=== PATIENT | male | born 1955 | race Caucasian/White ===

== ENCOUNTER → 2016-09-05 | Outpatient (CLI) | payer BC, OTHER ==
[2016-09-05 11:06] LABS: MEAN CORPUSCULAR HEMOGLOBIN 30.7 pg (27.0-33.0); MEAN CORPUSCULAR HGB CONC 34.3 g/dl (32.0-36.5); MEAN CORPUSCULAR VOLUME 89.4 fl (80.0-96.0); RED CELL DISTRIBUTION WIDTH 12.8 % (11.5-14.5); WHITE BLOOD COUNT 6.4 K/mm3 (4.0-10.0)
[2016-09-05 11:34] LABS: ALBUMIN 3.5 GM/DL (3.2-5.2); ALKALINE PHOSPHATASE 77 U/L (45-117); ALT/SGPT 25 U/L (12-78); ANION GAP 9 MEQ/L (8-16); AST/SGOT 14 U/L (15-37); BILIRUBIN,TOTAL 0.6 MG/DL (0.2-1.0); BLOOD UREA NITROGEN 12 MG/DL (7-18); CALCIUM LEVEL 8.6 MG/DL (8.5-10.1); CARBON DIOXIDE LEVEL 29 MEQ/L (21-32); CHLORIDE LEVEL 104 MEQ/L (98-107); CHOLESTEROL LEVEL 193 MG/DL (<200); CREATININE FOR GFR 0.92 MG/DL (0.70-1.30); GLOMERULAR FILTRATION RATE > 60.0 (>56); GLUCOSE, FASTING 91 MG/DL (70-105); POTASSIUM SERUM 4.4 MEQ/L (3.5-5.1); SODIUM LEVEL 142 MEQ/L (136-145); TRIGLYCERIDES LEVEL 194 MG/DL (<150)
== END ==
LOC: M LAB 10:09
PROVIDERS: ATTEND Family Medicine
DX: F32.1 Major depressive disorder, single episode, moderate (principal); F10.10 Alcohol abuse, uncomplicated; G47.33 Obstructive sleep apnea (adult) (pediatric); K21.9 Gastro-esophageal reflux disease without esophagitis; E66.9 Obesity, unspecified; N52.8 Other male erectile dysfunction; I10 Essential (primary) hypertension; Z98.84 Bariatric surgery status

== ENCOUNTER 2017-08-21 10:00 | Emergency (ER) | payer OTHER ==
[2017-08-21] MEDS: KETOROLAC TROMETHAMINE 10 MG TAB PO (11:15)
== END 2017-08-21 12:56 | disposition home or self-care (01) ==
LOC: M ED 10:00
DX: S76.012A Strain of muscle, fascia and tendon of left hip, initial encounter (principal); X58.XXXA Exposure to other specified factors, initial encounter; Y92.89 Other specified places as the place of occurrence of the external cause; I10 Essential (primary) hypertension; E78.5 Hyperlipidemia, unspecified; K21.9 Gastro-esophageal reflux disease without esophagitis; Z87.442 Personal history of urinary calculi; Z98.84 Bariatric surgery status; Z79.899 Other long term (current) drug therapy; Z79.82 Long term (current) use of aspirin; Z87.891 Personal history of nicotine dependence
CPT/HCPCS: 73502

== ENCOUNTER → 2018-08-06 | Outpatient (CLI) | payer OTHER ==
[~2018-08-06] MED LIST: ASPI1TAB PO; ATOR80TA59; CYCL10TA PO; ESCI20TA; FLUO20CA19; NORCOTAB PO; OMEP40CA2; TRAZ-163 PO
== END ==
LOC: M OUTALCOH 12:35
PROVIDERS: ATTEND Psychiatry & Neurology Psychiatry
DX: F10.20 Alcohol dependence, uncomplicated (principal)

== ENCOUNTER → 2018-08-06 | Outpatient (REF) | payer OTHER ==
[2018-08-06 13:52] LABS: ALBUMIN 3.5 GM/DL (3.2-5.2); ALT/SGPT 29 U/L (12-78); AMYLASE 60 U/L (25-115); BILIRUBIN,TOTAL 0.6 MG/DL (0.2-1.0); BLOOD UREA NITROGEN 15 MG/DL (7-18); CALCIUM LEVEL 8.8 MG/DL (8.8-10.2); CARBON DIOXIDE LEVEL 30 MEQ/L (21-32); CHLORIDE LEVEL 105 MEQ/L (98-107); CREATININE FOR GFR 0.98 MG/DL (0.70-1.30); GLOMERULAR FILTRATION RATE > 60.0 (>49); GLUCOSE, FASTING 83 MG/DL (70-100); LIPASE 168 U/L (73-393); POTASSIUM SERUM 4.9 MEQ/L (3.5-5.1); SODIUM LEVEL 141 MEQ/L (136-145)
== END ==
LOC: M SFHCPLAZ 11:08
PROVIDERS: ATTEND Family Medicine
DX: F10.10 Alcohol abuse, uncomplicated (principal)

== ENCOUNTER → 2018-08-20 | Outpatient (REF) | payer OTHER ==
[2018-08-21 11:48] LABS: FOLATE 18.4 NG/ML (>5.4)
[2018-08-22 10:47] LABS: HEPATITIS C VIRUS ABY INDEX 1.1 INDEX (<0.8); HIV 1&2 SCREEN CENTAUR NEGATIVE (NEGATIVE)
[2018-08-23 11:23] LABS: VITAMIN B12 LEVEL 466 PG/ML (232-1245)
== END ==
LOC: M SFHCPLAZ 13:59
PROVIDERS: ATTEND Family Medicine
DX: Z72.51 High risk heterosexual behavior (principal); F10.10 Alcohol abuse, uncomplicated

== ENCOUNTER → 2018-09-26 | Outpatient (REF) | payer OTHER ==
[~2018-09-26] MED LIST changes: +CHLO50TA; +HYDR50TA70; +LOSA50TA88
[2018-09-26 12:03] LABS: APPEARANCE, URINE HAZY (CLEAR); BACTERIA, URINE AUTO NEGATIVE (NEGATIVE); BILIRUBIN, URINE AUTO NEGATIVE (NEGATIVE); BLOOD, URINE BLOOD NEGATIVE (NEGATIVE); COLOR, URINE AMBER (YELLOW); GLUCOSE, URINE (UA) AUTO NEGATIVE (NEGATIVE); KETONE, URINE AUTO NEGATIVE (NEGATIVE); LEUKOCYTE ESTERASE, URINE AUTO NEGATIVE (NEGATIVE); MUCUS, URINE SMALL (NEGATIVE); NITRITE, URINE AUTO NEGATIVE (NEGATIVE); PROTEIN, URINE AUTO NEGATIVE (NEGATIVE); RBC, URINE AUTO 2 /HPF (0-3); SPECIFIC GRAVITY URINE AUTO 1.019 (1.002-1.035); SQUAMOUS EPITHELIAL CELL UR AU 0 /HPF (0-6); WBC, URINE AUTO 0 /HPF (0-3)
[2018-09-26 12:37] LABS: BLOOD UREA NITROGEN 14 MG/DL (7-18); CALCIUM LEVEL 8.8 MG/DL (8.8-10.2); CARBON DIOXIDE LEVEL 32 MEQ/L (21-32); CHLORIDE LEVEL 103 MEQ/L (98-107); CREATININE FOR GFR 0.83 MG/DL (0.70-1.30); GLOMERULAR FILTRATION RATE > 60.0 (>49); GLUCOSE, FASTING 82 MG/DL (70-100); POTASSIUM SERUM 4.3 MEQ/L (3.5-5.1); SODIUM LEVEL 140 MEQ/L (136-145)
== END ==
LOC: M SFHCPLAZ 10:37
PROVIDERS: ATTEND Family Medicine
DX: I10 Essential (primary) hypertension (principal)

== ENCOUNTER 2018-10-13 00:35 | Emergency (ER) | payer OTHER ==
[~2018-10-13] VITALS: Ht 172.7 cm; Wt 109.1 kg
[~2018-10-13 00:35] MED LIST changes: -ASPI1TAB PO; +ASPI81TA26 PO; -CHLO50TA; +HYDR-3715 PO; -HYDR50TA70; -LOSA50TA88; -NORCOTAB PO
[2018-10-13] MEDS ORDERED: LOSA50TA88 (00:42)
[2018-10-13] MEDS ORDERED: HYDR50TA70 (00:42)
[2018-10-13] MEDS ORDERED: CHLO50TA (00:42)
[2018-10-13 01:27] LABS: BASO # 0.1 10^3/uL (0.0-0.2); BASO % 0.7 % (0.0-1.0); EOS # 0.4 10^3/uL (0.0-0.50); EOS % 3.9 % (0.0-3.0); HEMOGLOBIN 14.8 g/dl (13.5-17.5); LYMPH # 2.8 10^3/uL (1.5-4.5); LYMPH % 28.8 % (24.0-44.0); MEAN CORPUSCULAR HEMOGLOBIN 30.9 pg (27.0-33.0); MEAN CORPUSCULAR HGB CONC 34.4 g/dl (32.0-36.5); MEAN CORPUSCULAR VOLUME 89.8 fl (80.0-96.0); MONO # 0.8 10^3/uL (0.0-0.8); MONO % 7.9 % (0.0-5.0); NEUTROPHILS # 5.7 10^3/uL (1.8-7.7); NEUTROPHILS % 58.3 % (36.0-66.0); PLATELET COUNT, AUTOMATED 319 10^3/uL (150-450); RED BLOOD COUNT 4.79 10^6/uL (4.30-6.10); WHITE BLOOD COUNT 9.8 10^3/uL (4.0-10.0)
[2018-10-13 01:42] LABS: INR 0.92; PROTHROMBIN TIME 12.5 SECONDS (12.1-14.4)
[2018-10-13 02:02] LABS: ALBUMIN 3.7 GM/DL (3.2-5.2); ALT/SGPT 38 U/L (12-78); BILIRUBIN,DIRECT < 0.1 MG/DL (0.0-0.2); BILIRUBIN,TOTAL 0.3 MG/DL (0.2-1.0); BLOOD UREA NITROGEN 13 MG/DL (7-18); CALCIUM LEVEL 8.7 MG/DL (8.8-10.2); CARBON DIOXIDE LEVEL 29 MEQ/L (21-32); CHLORIDE LEVEL 99 MEQ/L (98-107); CREATININE FOR GFR 0.97 MG/DL (0.70-1.30); ETHYL ALCOHOL (ETHANOL) 0.087 % (0.000-0.010); GLOMERULAR FILTRATION RATE > 60.0 (>49); GLUCOSE, FASTING 95 MG/DL (70-100); LIPASE 235 U/L (73-393); POTASSIUM SERUM 3.3 MEQ/L (3.5-5.1); SODIUM LEVEL 139 MEQ/L (136-145); TOTAL PROTEIN 7.6 GM/DL (6.4-8.2)
[2018-10-13] MEDS ORDERED: BISACODYL 5 MG TAB PO ONE (02:45)
[2018-10-13] MEDS ORDERED: MIRA3350 PO (03:50)
[2018-10-13 03:56] VITALS: BP 149/97
--- NOTE | 2018-10-13 08:16 | REP ---
Clinical: Abdominal pain. Technique: Upright view of the chest with supine and upright views of the abdomen and pelvis. Findings: Frontal upright view of the chest demonstrates no acute cardiopulmonary process or free air below the diaphragm to suspect pneumoperitoneum. Supine and upright views of the abdomen and pelvis demonstrate nonspecific bowel gas pattern without obstruction or perforation. No organomegaly. No abnormal calcifications. Skeletal structures normal for age. Surgical clips along the medial aspect of the left mid abdomen. Impression: Nonspecific bowel gas pattern. Electronically Signed by Saurabh Mcelroy MD 10/13/2018 08:07 A
== END 2018-10-13 04:18 | disposition home or self-care (01) ==
LOC: M ED 00:35
DX: F10.129 Alcohol abuse with intoxication, unspecified (principal); K59.00 Constipation, unspecified; I10 Essential (primary) hypertension; E78.5 Hyperlipidemia, unspecified; K21.9 Gastro-esophageal reflux disease without esophagitis; E66.01 Morbid (severe) obesity due to excess calories; Z98.84 Bariatric surgery status; G47.30 Sleep apnea, unspecified; Z79.82 Long term (current) use of aspirin; Z79.899 Other long term (current) drug therapy
CPT/HCPCS: 74021; 80048; 80076; 83690; 85025; 85610; 93041; 99284; G0480

== ENCOUNTER → 2019-02-12 | Outpatient (REF) | payer OTHER ==
[~2019-02-12] MED LIST changes: -ATOR80TA59; +ATOR80TA59 PO; +CHLO50TA PO; -ESCI20TA; +ESCI20TA PO; -FLUO20CA19; +FLUO20CA19 PO; +HYDR50TA70; +LOSA50TA88 PO; +MIRA3350 PO; +RANI150T PO
[2019-02-12 15:10] LABS: BASO # 0.1 10^3/uL (0.0-0.2); EOS # 0.2 10^3/uL (0.0-0.50); EOS % 3.6 % (0.0-3.0); HEMATOCRIT 44.2 % (42.0-52.0); HEMOGLOBIN 14.6 g/dl (13.5-17.5); LYMPH # 1.5 10^3/uL (1.5-4.5); LYMPH % 24.1 % (24.0-44.0); MEAN CORPUSCULAR HEMOGLOBIN 30.9 pg (27.0-33.0); MEAN CORPUSCULAR VOLUME 93.4 fl (80.0-96.0); MONO # 0.5 10^3/uL (0.0-0.8); MONO % 7.6 % (0.0-5.0); NEUTROPHILS # 3.9 10^3/uL (1.8-7.7); NEUTROPHILS % 63.5 % (36.0-66.0); PLATELET COUNT, AUTOMATED 353 10^3/uL (150-450); RED BLOOD COUNT 4.73 10^6/uL (4.30-6.10); WHITE BLOOD COUNT 6.1 10^3/uL (4.0-10.0)
[2019-02-12 15:48] LABS: ERYTHROCYTE SEDIMENTATION RATE 30 mm/hr (0-20)
== END ==
LOC: M SFHCPLAZ 12:15
PROVIDERS: ATTEND Family Medicine
DX: M25.532 Pain in left wrist (principal)

== ENCOUNTER 2019-02-22 10:38 | Day surgery (SDC) | payer OTHER ==
[~2019-02-22] VITALS: Ht 172.7 cm; Wt 105.0 kg
[2019-02-22] MEDS ORDERED: NS 1,000 ML IV ONE (11:30)
--- NOTE | 2019-02-22 12:28 | ROOR ---
Patient Name: Amandeep Coto Procedure Date: 02/22/2019 12:14 PM Date of : 1955 Age: 63 Room: [facility] Gender: Male Note Status: Finalized Procedure: Upper GI endoscopy Indications: Epigastric abdominal pain, Heartburn Providers: Ramy YUNG MD Referring MD: SOM RODRIGUEZ MD Requesting Provider: Medicines: Monitored Anesthesia Care Complications: No immediate complications. Procedure: Pre-Anesthesia Assessment: - The heart rate, respiratory rate, oxygen saturations, blood pressure, adequacy of pulmonary ventilation, and response to care were monitored throughout the procedure. The Endoscope was introduced through the mouth, and advanced to the jejunum. The upper GI endoscopy was accomplished without difficulty. The patient tolerated the procedure well. Findings: The examined esophagus was normal. 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 The gastrojejunal anastomosis was characterized by healthy appearing mucosa. The exam of the stomach was otherwise normal. The examined jejunum was normal. Impression: - Normal esophagus. - Carlos-en-Y gastrojejunostomy with gastrojejunal anastomosis widely patent and characterized by healthy appearing mucosa. - Stomach is otherwise normal. - Normal examined jejunum. - No specimens collected. Recommendation: - Observe patient's clinical course. - Follow an antireflux regimen. Ramy Yung MD Ramy YUNG MD 02/22/2019 12:27:55 PM Electronically signed by Ramy YUNG MD Number of Addenda: 0 Note Initiated On: 02/22/2019 12:14 PM Estimated Blood Loss: Estimated blood loss: none.
[2019-02-22] MEDS ORDERED: PROPOFOL 200 MG/20 ML VIAL As Ordered ONE ×2 (12:29→12:33)
[2019-02-22] MEDS ORDERED: LIDOCAINE 2% INJ 100 MG/5 ML SDV (FOR ANES.) As Ordered ONE (12:29)
--- NOTE | 2019-02-22 12:47 | ROOR ---
Patient Name: Amandeep Coto Procedure Date: 02/22/2019 12:15 PM Date of : 1955 Age: 63 Room: [facility] Gender: Male Note Status: Finalized Procedure: Colonoscopy Indications: High risk colon cancer surveillance: Personal history of colonic polyps, High risk colon cancer surveillance: Personal history of sessile serrated colon polyp (10 mm or greater in size) Providers: Ramy YUNG MD Referring MD: SOM RODRIGUEZ MD Requesting Provider: Medicines: Monitored Anesthesia Care Complications: No immediate complications. Procedure: Pre-Anesthesia Assessment: - The heart rate, respiratory rate, oxygen saturations, blood pressure, adequacy of pulmonary ventilation, and response to care were monitored throughout the procedure. The Colonoscope was introduced through the anus and advanced to the cecum, identified by appendiceal orifice and ileocecal valve. The colonoscopy was performed without difficulty. The patient tolerated the procedure well. The quality of the bowel preparation was fair and unsatisfactory. Findings: The perianal and digital rectal examinations were normal. (EXAM: Complete, PREP: Suboptimal) A 5 mm polyp was found in the ascending colon. The polyp was sessile. The polyp was removed with a cold snare. Resection and retrieval were complete. The exam was otherwise without abnormality on direct and retroflexion views. Impression: - (EXAM: Complete, PREP: Suboptimal) - One 5 mm polyp in the ascending colon, removed with a cold snare. Resected and retrieved. - Internal hemorrhoids. - The examination was otherwise normal on direct and retroflexion views. Recommendation: - Repeat colonoscopy in 2 years because the bowel preparation was suboptimal. - (Rec alternate colon preparation for next colonoscopy) Ramy Yung MD Ramy YUNG MD 02/22/2019 12:47:00 PM Electronically signed by Ramy YUNG MD Number of Addenda: 0 Note Initiated On: 02/22/2019 12:15 PM Estimated Blood Loss: Estimated blood loss: none.
[2019-02-22 13:33] VITALS: BP 159/77
== END 2019-02-22 13:40 | disposition home or self-care (01) ==
LOC: M OPP 10:38
PROVIDERS: ATTEND Internal Medicine Gastroenterology
DX: Z12.11 Encounter for screening for malignant neoplasm of colon (principal); Z86.010 Personal history of colon polyps; D12.2 Benign neoplasm of ascending colon; R10.13 Epigastric pain; R12 Heartburn; Z98.0 Intestinal bypass and anastomosis status; I10 Essential (primary) hypertension; E78.5 Hyperlipidemia, unspecified; K21.9 Gastro-esophageal reflux disease without esophagitis; F41.9 Anxiety disorder, unspecified; F32.9 Major depressive disorder, single episode, unspecified; G47.30 Sleep apnea, unspecified; R06.83 Snoring; Z98.84 Bariatric surgery status; Z79.82 Long term (current) use of aspirin; Z79.899 Other long term (current) drug therapy

== ENCOUNTER → 2019-04-02 | Outpatient (REF) | payer OTHER ==
[2019-04-02 17:23] LABS: HEMATOCRIT 42.1 % (42.0-52.0); MEAN CORPUSCULAR HEMOGLOBIN 31.4 pg (27.0-33.0); MEAN CORPUSCULAR HGB CONC 33.3 g/dl (32.0-36.5); MEAN CORPUSCULAR VOLUME 94.4 fl (80.0-96.0); PLATELET COUNT, AUTOMATED 319 10^3/uL (150-450); RED BLOOD COUNT 4.46 10^6/uL (4.30-6.10); WHITE BLOOD COUNT 5.9 10^3/uL (4.0-10.0)
[2019-04-02 17:51] LABS: ALBUMIN 3.5 GM/DL (3.2-5.2); ALT/SGPT 21 U/L (12-78); BILIRUBIN,TOTAL 0.6 MG/DL (0.2-1.0); BLOOD UREA NITROGEN 19 MG/DL (7-18); CALCIUM LEVEL 9.1 MG/DL (8.8-10.2); CARBON DIOXIDE LEVEL 31 MEQ/L (21-32); CHLORIDE LEVEL 101 MEQ/L (98-107); CREATININE FOR GFR 1.07 MG/DL (0.70-1.30); GLOMERULAR FILTRATION RATE > 60.0 (>49); GLUCOSE, FASTING 86 MG/DL (70-100); LIPASE 166 U/L (73-393); SODIUM LEVEL 139 MEQ/L (136-145); TOTAL PROTEIN 6.9 GM/DL (6.4-8.2)
== END ==
LOC: M SFHCPLAZ 15:33
PROVIDERS: ATTEND Family Medicine
DX: R10.84 Generalized abdominal pain (principal)

== ENCOUNTER → 2019-06-18 | Outpatient (REF) | payer OTHER ==
[~2019-06-18] MED LIST changes: -OMEP40CA2; +OMEP40CA97
[2019-06-18 18:03] LABS: BASO # 0.1 10^3/uL (0.0-0.2); BASO % 0.8 % (0.0-1.0); EOS # 0.3 10^3/uL (0.0-0.5); EOS % 3.4 % (0.0-3.0); HEMOGLOBIN 14.2 g/dl (13.5-17.5); LYMPH # 2.1 10^3/uL (1.5-5.0); LYMPH % 29.1 % (24.0-44.0); MEAN CORPUSCULAR HEMOGLOBIN 30.6 pg (27.0-33.0); MEAN CORPUSCULAR HGB CONC 32.3 g/dl (32.0-36.5); MEAN CORPUSCULAR VOLUME 94.8 fl (80.0-96.0); MONO # 0.6 10^3/uL (0.0-0.8); MONO % 7.6 % (0.0-5.0); NEUTROPHILS # 4.3 10^3/uL (1.5-8.5); NEUTROPHILS % 58.7 % (36.0-66.0); PLATELET COUNT, AUTOMATED 375 10^3/uL (150-450); RED BLOOD COUNT 4.64 10^6/uL (4.30-6.10); WHITE BLOOD COUNT 7.3 10^3/uL (4.0-10.0)
[2019-06-18 18:24] LABS: ALBUMIN 3.7 GM/DL (3.2-5.2); ALT/SGPT 33 U/L (12-78); BILIRUBIN,TOTAL 0.4 MG/DL (0.2-1.0); BLOOD UREA NITROGEN 13 MG/DL (7-18); CALCIUM LEVEL 9.8 MG/DL (8.8-10.2); CARBON DIOXIDE LEVEL 33 MEQ/L (21-32); CHLORIDE LEVEL 100 MEQ/L (98-107); CREATININE FOR GFR 1.17 MG/DL (0.70-1.30); GLOMERULAR FILTRATION RATE > 60.0 (>49); GLUCOSE, FASTING 79 MG/DL (70-100); LIPASE 206 U/L (73-393); POTASSIUM SERUM 4.4 MEQ/L (3.5-5.1); SODIUM LEVEL 140 MEQ/L (136-145); TOTAL PROTEIN 7.4 GM/DL (6.4-8.2)
== END ==
LOC: M SFHCPLAZ 15:25
PROVIDERS: ATTEND Family Medicine
DX: R10.31 Right lower quadrant pain (principal)

== ENCOUNTER → 2019-07-22 | Outpatient (CLI) | payer OTHER ==
[~2019-07-22] MED LIST changes: +GASTROGRAFIN SOLUTION 30ML (Q9963) As Ordered ONE; +ISOVUE-370 76% 100ML VIAL (Q9967) As Ordered ONE
--- NOTE | 2019-07-22 21:24 | REP ---
Clinical: Right lower quadrant pain. Technique: Axial contrast enhanced images from the lung bases to the pubic symphysis using 100 ml Isovue 370 intravenous contrast material with coronal and sagittal re-formations. Findings: Lung bases are essentially clear. The visualized heart and pericardium appear normal. Liver, spleen, pancreas, gallbladder, bilateral adrenal glands and kidneys are normal. Evidence for prior gastric bypass surgery noted. No bowel obstruction or acute inflammatory process involving the enteric system. Normal terminal ileum, cecum and appendix identified in the right lower quadrant. Pelvis demonstrates normal bladder and age appropriate prostate/seminal vesicles. No ascites. No free air. No adenopathy. Abdominal aorta without aneurysm or dissection. Musculoskeletal structures demonstrate age-related degenerative changes. Impression: 1. No acute abdominopelvic pathology appreciated. 2. Normal right lower quadrant structures. Electronically Signed by Saurabh Mcelroy MD 07/22/2019 09:16 P
== END ==
LOC: M RAD 12:44
PROVIDERS: ATTEND Student in an Organized Health Care Education/Training Program
DX: R10.31 Right lower quadrant pain (principal)
CPT/HCPCS: 74178; Q9963; Q9967

== ENCOUNTER → 2020-03-12 | Outpatient (CLI) | payer OTHER ==
[~2020-03-12] MED LIST changes: +CYCL-707 PO; -CYCL10TA PO; -FLUO20CA19 PO; +FLUO20CA22 PO; -GASTROGRAFIN SOLUTION 30ML (Q9963) As Ordered ONE; -ISOVUE-370 76% 100ML VIAL (Q9967) As Ordered ONE; -TRAZ-163 PO; +TRAZ-257 PO
[2020-03-12 13:31] LABS: HEMATOCRIT 45.6 % (42.0-52.0); HEMOGLOBIN 14.7 g/dl (13.5-17.5); MEAN CORPUSCULAR HEMOGLOBIN 30.2 pg (27.0-33.0); MEAN CORPUSCULAR HGB CONC 32.2 g/dl (32.0-36.5); MEAN CORPUSCULAR VOLUME 93.8 fl (80.0-96.0); PLATELET COUNT, AUTOMATED 337 10^3/uL (150-450); RED BLOOD COUNT 4.86 10^6/uL (4.30-6.10); WHITE BLOOD COUNT 7.4 10^3/uL (4.0-10.0)
[2020-03-12 14:04] LABS: ALBUMIN 3.6 GM/DL (3.2-5.2); ALT/SGPT 33 U/L (12-78); BILIRUBIN,TOTAL 0.3 MG/DL (0.2-1.0); BLOOD UREA NITROGEN 15 MG/DL (7-18); CALCIUM LEVEL 9.3 MG/DL (8.8-10.2); CARBON DIOXIDE LEVEL 36 MEQ/L (21-32); CHLORIDE LEVEL 99 MEQ/L (98-107); CREATININE FOR GFR 1.08 MG/DL (0.70-1.30); GLOMERULAR FILTRATION RATE > 60.0 (>49); GLUCOSE, FASTING 74 MG/DL (70-100); POTASSIUM SERUM 4.3 MEQ/L (3.5-5.1); SODIUM LEVEL 139 MEQ/L (136-145); TOTAL PROTEIN 7.6 GM/DL (6.4-8.2)
[2020-03-12 14:08] LABS: VITAMIN B12 LEVEL 268 PG/ML (247-911)
== END ==
LOC: M PLALAB 10:03
PROVIDERS: ATTEND Family Medicine
DX: I10 Essential (primary) hypertension (principal); F10.988 Alcohol use, unspecified with other alcohol-induced disorder

== ENCOUNTER → 2020-04-30 | Outpatient (CLI) | payer OTHER ==
--- NOTE | 2020-04-30 11:53 | REP ---
INDICATION: COUGH COMPARISON: 08/16/2013 TECHNIQUE: PA and lateral. FINDINGS: The mediastinum and cardiac silhouette are normal. The lung [place] are clear and without acute consolidation, effusion, or pneumothorax. The skeletal structures are intact and normal. IMPRESSION: No acute cardiopulmonary process <Electronically signed by Saurabh Mcelroy > 04/30/20 1142
== END ==
LOC: M LAB 10:56
PROVIDERS: ATTEND Family Medicine
DX: R05 Cough (principal)

== ENCOUNTER → 2020-06-24 | Outpatient (CLI) | payer SELFPAY | LOC: M LABSMTC 12:38 | PROVIDERS: ATTEND Pediatrics | DX: Z11.59 Encounter for screening for other viral diseases (principal) ==

== ENCOUNTER → 2020-09-03 | Outpatient (REF) | payer OTHER ==
[~2020-09-03] MED LIST changes: -ESCI20TA PO; +ESCI20TA16 PO
[2020-09-03 17:36] LABS: HEMATOCRIT 44.4 % (42.0-52.0); HEMOGLOBIN 14.5 g/dl (13.5-17.5); MEAN CORPUSCULAR HEMOGLOBIN 30.5 pg (27.0-33.0); MEAN CORPUSCULAR HGB CONC 32.7 g/dl (32.0-36.5); MEAN CORPUSCULAR VOLUME 93.5 fl (80.0-96.0); PLATELET COUNT, AUTOMATED 362 10^3/uL (150-450); RED BLOOD COUNT 4.75 10^6/uL (4.30-6.10)
[2020-09-03 17:53] LABS: ALT/SGPT 30 U/L (12-78); BILIRUBIN,TOTAL 0.6 MG/DL (0.2-1.0); BLOOD UREA NITROGEN 18 MG/DL (7-18); CALCIUM LEVEL 9.4 MG/DL (8.8-10.2); CARBON DIOXIDE LEVEL 31 MEQ/L (21-32); CHLORIDE LEVEL 99 MEQ/L (98-107); CREATININE FOR GFR 1.17 MG/DL (0.70-1.30); GLOMERULAR FILTRATION RATE > 60.0 (>49); GLUCOSE, FASTING 89 MG/DL (70-100); POTASSIUM SERUM 4.7 MEQ/L (3.5-5.1); SODIUM LEVEL 138 MEQ/L (136-145); TOTAL PROTEIN 7.5 GM/DL (6.4-8.2)
[2020-09-03 18:01] LABS: FOLATE > 24.0 NG/ML; VITAMIN B12 LEVEL 372 PG/ML
[2020-09-03 18:03] LABS: INR 0.92; PROTHROMBIN TIME 12.5 SECONDS (12.5-14.3)
== END ==
LOC: M SFHCPLAZ 15:22
PROVIDERS: ATTEND Family Medicine
DX: F10.182 Alcohol abuse with alcohol-induced sleep disorder (principal); F01-F99 Mental, behavioral and neurodevelopmental disorders

== ENCOUNTER → 2020-11-13 | Outpatient (REF) | payer OTHER ==
[2020-11-13 17:16] LABS: BASO # 0.1 10^3/uL (0.0-0.2); BASO % 0.7 % (0.0-1.0); EOS # 0.4 10^3/uL (0.0-0.5); EOS % 5.4 % (0.0-3.0); HEMATOCRIT 42.1 % (42.0-52.0); HEMOGLOBIN 13.8 g/dl (13.5-17.5); LYMPH # 2.7 10^3/uL (1.5-5.0); LYMPH % 32.7 % (24.0-44.0); MEAN CORPUSCULAR HGB CONC 32.8 g/dl (32.0-36.5); MEAN CORPUSCULAR VOLUME 94.6 fl (80.0-96.0); MONO # 0.6 10^3/uL (0.0-0.8); MONO % 7.5 % (2.0-8.0); NEUTROPHILS # 4.3 10^3/uL (1.5-8.5); NEUTROPHILS % 53.3 % (36.0-66.0); PLATELET COUNT, AUTOMATED 317 10^3/uL (150-450); RED BLOOD COUNT 4.45 10^6/uL (4.30-6.10); WHITE BLOOD COUNT 8.1 10^3/uL (4.0-10.0)
[2020-11-13 17:41] LABS: ALBUMIN 3.5 GM/DL (3.2-5.2); ALT/SGPT 18 U/L (12-78); BILIRUBIN,TOTAL 0.4 MG/DL (0.2-1.0); BLOOD UREA NITROGEN 13 MG/DL (7-18); CALCIUM LEVEL 8.9 MG/DL (8.8-10.2); CARBON DIOXIDE LEVEL 30 MEQ/L (21-32); CHLORIDE LEVEL 105 MEQ/L (98-107); CREATININE FOR GFR 0.93 MG/DL (0.70-1.30); GLOMERULAR FILTRATION RATE > 60.0 (>49); GLUCOSE, FASTING 89 MG/DL (70-100); NT-PRO BNP 68 PG/ML (<125); POTASSIUM SERUM 3.9 MEQ/L (3.5-5.1); SODIUM LEVEL 140 MEQ/L (136-145); TOTAL PROTEIN 6.8 GM/DL (6.4-8.2)
== END ==
LOC: M SFHCPLAZ 15:41
PROVIDERS: ATTEND Family Medicine
DX: R05 Cough (principal); K21.9 Gastro-esophageal reflux disease without esophagitis; F10.182 Alcohol abuse with alcohol-induced sleep disorder; Z98.84 Bariatric surgery status

== ENCOUNTER → 2021-06-16 | Outpatient (CLI) | payer MEDICARE ==
[~2021-06-16] MED LIST changes: +ADV250INH INH; +ALBU8.5H INH; +ALPR1TAB3 PO; +CHLO125TA PO; +GABA-282 PO; +LOSA50TA28 PO; -LOSA50TA88 PO; +OMEP40CA4; +OMEP40CA5 PO; -OMEP40CA97
== END ==
LOC: M OUTALCOH 07:49
PROVIDERS: ATTEND Psychiatry & Neurology Psychiatry
DX: F10.20 Alcohol dependence, uncomplicated (principal)

== ENCOUNTER 2021-06-30 14:00 | Outpatient (RCR) | payer MEDICARE ==
[~2021-06-30 14:00] MED LIST changes: -ADV250INH INH; -ALBU8.5H INH; -ALPR1TAB3 PO; -CHLO125TA PO; -GABA-282 PO; -LOSA50TA28 PO; +LOSA50TA88 PO; -OMEP40CA5 PO
== END 2021-07-16 ==
LOC: M OUTALCOH 14:00
PROVIDERS: ATTEND Psychiatry & Neurology Psychiatry
DX: F10.20 Alcohol dependence, uncomplicated (principal)

== ENCOUNTER 2021-08-09 10:22 | Day surgery (SDC) | payer MEDICARE ==
[~2021-08-09] VITALS: Ht 172.7 cm; Wt 100.7 kg
[~2021-08-09 10:22] MED LIST changes: +ADV250INH INH; +ALBU8.5H INH; +ALPR1TAB3 PO; +CHLO125TA PO; +GABA-282 PO; +LOSA50TA28 PO; -LOSA50TA88 PO; +NS 1,000 ML IV ONE; +OMEP40CA5 PO
[2021-08-09] MEDS ORDERED: propofoL 200 MG/20 ML VIAL As Ordered ONE (11:50)
[2021-08-09] MEDS ORDERED: LIDOCAINE 2% 100MG/5ML SDV (FOR ANES.) As Ordered ONE (11:50)
[2021-08-09 13:15] VITALS: BP 165/89
== END 2021-08-09 14:10 | disposition home or self-care (01) ==
LOC: M OPP 10:22
PROVIDERS: ATTEND Internal Medicine Gastroenterology
DX: Z12.11 Encounter for screening for malignant neoplasm of colon (principal); Z86.010 Personal history of colon polyps; Z80.0 Family history of malignant neoplasm of digestive organs; K63.5 Polyp of colon; K64.8 Other hemorrhoids; Z79.82 Long term (current) use of aspirin; Z79.899 Other long term (current) drug therapy; Z80.7 Family history of other malignant neoplasms of lymphoid, hematopoietic and related tissues; Z87.891 Personal history of nicotine dependence; Z98.84 Bariatric surgery status

== ENCOUNTER → 2021-09-30 | Outpatient (CLI) | payer MEDICARE ==
[~2021-09-30] MED LIST changes: -NS 1,000 ML IV ONE
[2021-09-30 11:34] LABS: BASO # 0.1 10^3/uL (0.0-0.2); BASO % 0.9 % (0.0-1.0); EOS # 0.7 10^3/uL (0.0-0.5); EOS % 8.7 % (0.0-3.0); HEMOGLOBIN 12.7 g/dl (13.5-17.5); LYMPH % 25.9 % (24.0-44.0); MEAN CORPUSCULAR HEMOGLOBIN 29.8 pg (27.0-33.0); MEAN CORPUSCULAR HGB CONC 32.6 g/dl (32.0-36.5); MEAN CORPUSCULAR VOLUME 91.5 fl (80.0-96.0); MONO # 0.7 10^3/uL (0.0-0.8); MONO % 8.7 % (2.0-8.0); NEUTROPHILS # 4.2 10^3/uL (1.5-8.5); NEUTROPHILS % 55.4 % (36.0-66.0); PLATELET COUNT, AUTOMATED 333 10^3/uL (150-450); RED BLOOD COUNT 4.26 10^6/uL (4.30-6.10); WHITE BLOOD COUNT 7.6 10^3/uL (4.0-10.0)
[2021-09-30 14:07] LABS: ALBUMIN 3.6 GM/DL (3.2-5.2); ALT/SGPT 26 U/L (12-78); BILIRUBIN,TOTAL 0.5 MG/DL (0.2-1.0); BLOOD UREA NITROGEN 16 MG/DL (7-18); CALCIUM LEVEL 9.1 MG/DL (8.8-10.2); CARBON DIOXIDE LEVEL 33 MEQ/L (21-32); CHLORIDE LEVEL 102 MEQ/L (98-107); CHOLESTEROL LEVEL 132 MG/DL (<200); CREATININE FOR GFR 0.99 MG/DL (0.70-1.30); GLOMERULAR FILTRATION RATE > 60.0 (>49); GLUCOSE, FASTING 78 MG/DL (70-100); HDL CHOLESTEROL 44 MG/DL (>40); LDL CHOLESTEROL 57 MG/DL (<100); NON-HDL-C 88 MG/DL; POTASSIUM SERUM 4.1 MEQ/L (3.5-5.1); SODIUM LEVEL 141 MEQ/L (136-145); TOTAL PROTEIN 6.2 GM/DL (6.4-8.2); TRIGLYCERIDES LEVEL 155 MG/DL (<150)
[2021-09-30 14:11] LABS: PROLACTIN 6.4 NG/ML (2.1-17.7)
[2021-09-30 14:12] LABS: FOLLICLE STIMULATING HORMONE 10.2 mIU/mL (1.4-18.1)
[2021-10-01 20:06] LABS: SEX HORMONE BINDING GLOBULIN 53.6 nmol/L (19.3-76.4); TESTOSTERONE FREE (DIRECT) 7.1 pg/mL (6.6-18.1)
== END ==
LOC: M PLALAB 08:30
PROVIDERS: ATTEND Family Medicine
DX: R79.89 Other specified abnormal findings of blood chemistry (principal)

== ENCOUNTER 2022-03-19 21:59 | Emergency (ER) | payer MEDICARE ==
[2022-03-19] MEDS ORDERED: MIDAZOLAM INJ 2MG/2ML VIAL (J2250 PER 1MG) IM ONE (22:25)
[2022-03-19] MEDS ORDERED: diphenhydrAMINE 50MG/ML VIAL (J1200) IM ONE (22:25)
[2022-03-19] MEDS ORDERED: HALOPERIDOL 5MG/ML VIAL (J1630 PER 1) IM ONE (22:25)
[2022-03-19] MEDS ORDERED: HALOPERIDOL 5MG/ML VIAL (J1630 PER 1) As Ordered ONE (22:30)
[2022-03-19 23:13] LABS: HEMATOCRIT 41.2 % (42.0-52.0); HEMOGLOBIN 13.5 g/dl (13.5-17.5); MEAN CORPUSCULAR HEMOGLOBIN 29.3 pg (27.0-33.0); MEAN CORPUSCULAR HGB CONC 32.8 g/dl (32.0-36.5); MEAN CORPUSCULAR VOLUME 89.4 fl (80.0-96.0); PLATELET COUNT, AUTOMATED 328 10^3/uL (150-450); RED BLOOD COUNT 4.61 10^6/uL (4.30-6.10); WHITE BLOOD COUNT 7.3 10^3/uL (4.0-10.0)
[2022-03-19 23:49] LABS: ACETAMINOPHEN LEVEL < 2.0 UG/ML (10.0-30.0); ALBUMIN 3.6 GM/DL (3.2-5.2); ALT/SGPT 28 U/L (12-78); BILIRUBIN,DIRECT 0.1 MG/DL (0.0-0.2); BILIRUBIN,TOTAL 0.2 MG/DL (0.2-1.0); BLOOD UREA NITROGEN 13 MG/DL (7-18); CALCIUM LEVEL 8.7 MG/DL (8.8-10.2); CARBON DIOXIDE LEVEL 25 MEQ/L (21-32); CHLORIDE LEVEL 103 MEQ/L (98-107); CREATININE FOR GFR 0.93 MG/DL (0.70-1.30); GLOMERULAR FILTRATION RATE > 60.0 (>49); GLUCOSE, FASTING 104 MG/DL (70-100); POTASSIUM SERUM 3.1 MEQ/L (3.5-5.1); SALICYLATE LEVEL < 1.7 MG/DL (5.0-30.0); SODIUM LEVEL 140 MEQ/L (136-145); TOTAL PROTEIN 6.8 GM/DL (6.4-8.2)
[2022-03-19 23:50] LABS: RSV AMPLIFICATION NEGATIVE (NEGATIVE)
[2022-03-20 01:46] LABS: AMPHETAMINES LEVEL URINE NEGATIVE (NEGATIVE); BARBITURATES URINE NEGATIVE (NEGATIVE); BENZODIAZEPINES URINE POSITIVE (NEGATIVE); CANNABINOIDS URINE NEGATIVE (NEGATIVE); COCAINE METABOLITE URINE NEGATIVE (NEGATIVE); METHADONE URINE NEGATIVE (NEGATIVE); OPIATES URINE NEGATIVE (NEGATIVE); PHENCYCLIDINE URINE NEGATIVE (NEGATIVE)
[2022-03-20] MEDS ORDERED: LORazepam 2 MG TAB PO ONE (04:30)
[2022-03-20] MEDS ORDERED: LORazepam 2 MG TAB PO STA ×2 (09:25→17:48)
[2022-03-20] MEDS ORDERED: CYAN100050 PO (09:53)
[2022-03-20] MEDS ORDERED: OYST500T12 PO (09:53)
[2022-03-20] MEDS ORDERED: GABA600T4 PO (09:53)
[2022-03-20] MEDS ORDERED: TADA10TA PO (09:53)
[2022-03-20] MEDS ORDERED: BUPR150T12 PO (09:53)
[2022-03-20] MEDS ORDERED: HOME MED LIST COMPLETE! XX SCH (09:55)
[2022-03-20] MEDS: GABAPENTIN 300 MG CAP PO SCH (22:58)
[2022-03-20] MEDS: traZODone 100 MG TAB PO SCH (22:59)
[2022-03-20] MEDS: OMEPRAZOLE 20MG CAP PO SCH (22:59)
[2022-03-20] MEDS: LOSARTAN 50MG TABLET PO SCH (23:01)
[2022-03-21] MEDS: buPROPion **XL** TABLET 150MG (WELLBUTRIN XL) PO SCH (10:10)
[2022-03-21] MEDS: OMEPRAZOLE 20MG CAP PO SCH ×2 (10:10→20:32)
[2022-03-21] MEDS: LOSARTAN 50MG TABLET PO SCH ×2 (10:11→20:32)
[2022-03-21] MEDS: ATORVASTATIN 20 MG TAB PO SCH (10:11)
[2022-03-21] MEDS: ASPIRIN 81MG ENTERIC TABLET PO SCH (10:12)
[2022-03-21] MEDS: CHLORTHALIDONE 25 MG TAB PO SCH (10:12)
[2022-03-21] MEDS ORDERED: LORazepam 2 MG TAB PO STA (10:34)
[2022-03-21] MEDS ORDERED: LORazepam 1 MG TAB PO ONE (19:40)
[2022-03-21] MEDS: GABAPENTIN 300 MG CAP PO SCH (20:32)
[2022-03-21] MEDS: traZODone 100 MG TAB PO SCH (20:32)
[2022-03-22] MEDS: ASPIRIN 81MG ENTERIC TABLET PO SCH (09:52)
[2022-03-22] MEDS: OMEPRAZOLE 20MG CAP PO SCH (09:52)
[2022-03-22] MEDS: ATORVASTATIN 20 MG TAB PO SCH (09:52)
[2022-03-22] MEDS: buPROPion **XL** TABLET 150MG (WELLBUTRIN XL) PO SCH (09:52)
[2022-03-22] MEDS: CHLORTHALIDONE 25 MG TAB PO SCH (09:52)
[2022-03-22 09:55] VITALS: BP 139/65
[2022-03-22] MEDS: LOSARTAN 50MG TABLET PO SCH (09:55)
[2022-03-22] MEDS ORDERED: LORazepam 2 MG TAB PO STA (10:01)
[2022-03-22 16:21] VITALS: BP 151/72
== END 2022-03-22 16:16 | disposition home or self-care (01) ==
LOC: M ED 21:59
DX: F32.A Depression, unspecified (principal); I44.0 Atrioventricular block, first degree; I10 Essential (primary) hypertension; E78.5 Hyperlipidemia, unspecified; G47.00 Insomnia, unspecified; K21.9 Gastro-esophageal reflux disease without esophagitis; Z79.899 Other long term (current) drug therapy; Z79.82 Long term (current) use of aspirin
CPT/HCPCS: 36415; 80048; 80076; 80143; 80307; 82077; 84443; 85027; 87631; 93005; 96372; 99285; J1200; J1630; J2250

== ENCOUNTER 2022-05-02 07:21 | Inpatient (IN) | payer MEDICARE ==
[~2022-05-02] VITALS: Ht 172.7 cm; Wt 88.8 kg
[~2022-05-02 07:21] MED LIST changes: +BUPR150T12 PO; +CYAN100050 PO; +GABA600T4 PO; +OYST500T12 PO; +TADA10TA PO
[2022-05-02] MEDS ORDERED: ONDANSETRON 4MG 2ML VIAL IV ONE (08:05)
[2022-05-02] MEDS ORDERED: ISOVUE-370 76% 100ML VIAL As Ordered ONE (08:06)
[2022-05-02] MEDS ORDERED: MECLIZINE 25 MG TABLET PO ONE (08:50)
[2022-05-02 08:52] LABS: BASO % 0.6 % (0.0-1.0); EOS # 0.3 10^3/uL (0.0-0.5); HEMATOCRIT 37.7 % (42.0-52.0); HEMOGLOBIN 12.5 g/dl (13.5-17.5); LYMPH # 1.3 10^3/uL (1.5-5.0); LYMPH % 19.8 % (24.0-44.0); MEAN CORPUSCULAR HEMOGLOBIN 29.7 pg (27.0-33.0); MEAN CORPUSCULAR HGB CONC 33.2 g/dl (32.0-36.5); MEAN CORPUSCULAR VOLUME 89.5 fl (80.0-96.0); MONO # 0.4 10^3/uL (0.0-0.8); NEUTROPHILS # 4.5 10^3/uL (1.5-8.5); NEUTROPHILS % 69.3 % (36.0-66.0); PLATELET COUNT, AUTOMATED 344 10^3/uL (150-450); RED BLOOD COUNT 4.21 10^6/uL (4.30-6.10); WHITE BLOOD COUNT 6.5 10^3/uL (4.0-10.0)
[2022-05-02 09:14] LABS: INR 0.95; PROTHROMBIN TIME 12.9 SECONDS (12.5-14.5)
[2022-05-02 09:15] LABS: PARTIAL THROMBOPLASTIN TIME 28.2 SECONDS (24.8-34.2)
[2022-05-02 09:28] LABS: CPK CREATINE PHOSPHOKINASE 52 U/L (39-308)
[2022-05-02 09:32] LABS: RSV AMPLIFICATION NEGATIVE (NEGATIVE)
[2022-05-02 10:20] LABS: CPK CREATINE PHOSPHOKINASE 58 U/L (39-308)
[2022-05-02] MEDS: GASTROGRAFIN SOLUTION 30ML PO SCH ×2 (12:02→12:37)
[2022-05-02] MEDS ORDERED: OYST500T10 PO (13:29)
[2022-05-02] MEDS ORDERED: METR0.7533 TOP (13:29)
[2022-05-02] MEDS ORDERED: HOME MED LIST COMPLETE! XX SCH (13:35)
[2022-05-02 15:00] VITALS: BP 141/69
[2022-05-02 15:18] LABS: ALBUMIN 3.1 GM/DL (3.2-5.2); ALT/SGPT 29 U/L (12-78); AMYLASE 74 U/L (25-115); BILIRUBIN,DIRECT 0.1 MG/DL (0.0-0.2); BILIRUBIN,TOTAL 0.4 MG/DL (0.2-1.0); C REACTIVE PROTEIN QUANTITATIV < 0.30 MG/DL (0.00-0.30); CHOLESTEROL LEVEL 134 MG/DL (<200); CHOLESTEROL RISK RATIO 2.576 (<5); FREE THYROXINE INDEX 3.3 % (1.4-3.8); HDL CHOLESTEROL 52 MG/DL (>40); LDL CHOLESTEROL 56 MG/DL (<100); LIPASE 152 U/L (73-393); NON-HDL-C 82 MG/DL; T UPTAKE 34 % (33-40); THYROID STIMULATING HORMONE 0.394 uIU/ML (0.358-3.740); THYROXINE (T4) 9.7 UG/DL (4.5-12.0); TOTAL PROTEIN 6.9 GM/DL (6.4-8.2); TRIGLYCERIDES LEVEL 128 MG/DL (<150)
[2022-05-02 15:19] LABS: ERYTHROCYTE SEDIMENTATION RATE 30 mm/hr (0-20)
[2022-05-02 15:45] LABS: HEMOGLOBIN A1c 5.4 %
[2022-05-02] MEDS ORDERED: metroNIDAZOLE 70 GM VAGINAL GEL TOP PRN (16:30)
[2022-05-02 17:06] VITALS: BP_SYST 124; BP_SYST 140; BP_SYST 144; BP_DIAS 61; BP_DIAS 64; BP_DIAS 71
[2022-05-02] MEDS ORDERED: ENTER DRUG NAME HERE (PATIENT'S OWN MED) TOP PRN (17:15)
[2022-05-02] MEDS: buPROPion **XL** TABLET 150MG (WELLBUTRIN XL) PO SCH (17:39)
[2022-05-02] MEDS: ATORVASTATIN 20 MG TAB PO SCH (17:39)
[2022-05-02 17:40] VITALS: BP 144/71
[2022-05-02] MEDS: LOSARTAN 50MG TABLET PO SCH (17:40)
[2022-05-02] MEDS: CHLORTHALIDONE 25 MG TAB PO SCH (17:40)
[2022-05-02 19:53] VITALS: BP_SYST 108; BP_SYST 109; BP_SYST 110; BP_DIAS 56; BP_DIAS 58; BP_DIAS 62
[2022-05-02] MEDS ORDERED: GABAPENTIN 300 MG CAP PO SCH (21:00)
[2022-05-03 00:26] VITALS: BP 125/66
[2022-05-03 03:42] VITALS: BP 115/62
[2022-05-03 07:47] LABS: HEMATOCRIT 39.9 % (42.0-52.0); HEMOGLOBIN 12.6 g/dl (13.5-17.5); MEAN CORPUSCULAR HEMOGLOBIN 29.1 pg (27.0-33.0); MEAN CORPUSCULAR HGB CONC 31.6 g/dl (32.0-36.5); MEAN CORPUSCULAR VOLUME 92.1 fl (80.0-96.0); PLATELET COUNT, AUTOMATED 359 10^3/uL (150-450); RED BLOOD COUNT 4.33 10^6/uL (4.30-6.10); WHITE BLOOD COUNT 6.7 10^3/uL (4.0-10.0)
[2022-05-03 07:55] VITALS: BP 114/56
[2022-05-03 08:13] LABS: BLOOD UREA NITROGEN 15 MG/DL (7-18); CALCIUM LEVEL 9.3 MG/DL (8.8-10.2); CARBON DIOXIDE LEVEL 34 MEQ/L (21-32); CHLORIDE LEVEL 100 MEQ/L (98-107); CREATININE FOR GFR 0.96 MG/DL (0.70-1.30); GLOMERULAR FILTRATION RATE > 60.0 (>49); GLUCOSE, FASTING 97 MG/DL (70-100); POTASSIUM SERUM 4.5 MEQ/L (3.5-5.1); SODIUM LEVEL 138 MEQ/L (136-145)
[2022-05-03] MEDS: buPROPion **XL** TABLET 150MG (WELLBUTRIN XL) PO SCH (08:37)
[2022-05-03] MEDS: ATORVASTATIN 20 MG TAB PO SCH (08:37)
[2022-05-03] MEDS: CHLORTHALIDONE 25 MG TAB PO SCH (08:38)
[2022-05-03] MEDS: LOSARTAN 50MG TABLET PO SCH (08:38)
[2022-05-03] MEDS ORDERED: PREVNAR-20 VACCINE 0.5ML SYRINGE IM.IMMUN ONE (09:00)
[2022-05-03] MEDS ORDERED: FLUBLOK(EGG FREE)(QUAD)INFLUENZA VACC 0.5ML SYRINGE 18YRS & OLDER IM.IMMUN ONE (09:00)
[2022-05-03 12:00] VITALS: BP 138/60
[2022-05-04 11:13] LABS: ANTINUCLEAR ANTIBODIES DIRECT Negative (Negative)
== END 2022-05-03 15:54 | disposition home or self-care (01) | DRG 310 ==
LOC: M ED 07:21 → M ED INP 14:06 → ENRESERV 14:23 → M PCU 14:52
PROVIDERS: ADMIT General Practice; ATTEND Internal Medicine
DX: R00.1 Bradycardia, unspecified (principal); E04.2 Nontoxic multinodular goiter; E78.5 Hyperlipidemia, unspecified; G47.33 Obstructive sleep apnea (adult) (pediatric); I10 Essential (primary) hypertension; K21.9 Gastro-esophageal reflux disease without esophagitis; J45.909 Unspecified asthma, uncomplicated; Z79.82 Long term (current) use of aspirin; Z79.899 Other long term (current) drug therapy

== ENCOUNTER 2022-05-25 17:14 | Emergency (ER) | payer MEDICARE ==
[~2022-05-25] VITALS: Ht 172.7 cm; Wt 91.1 kg
[~2022-05-25 17:14] MED LIST changes: +METR0.7526 TOP; +OYST500T10 PO
[2022-05-25 18:42] LABS: BASO # 0.1 10^3/uL (0.0-0.2); BASO % 0.6 % (0.0-1.0); EOS # 0.3 10^3/uL (0.0-0.5); EOS % 2.7 % (0.0-3.0); HEMATOCRIT 39.1 % (42.0-52.0); HEMOGLOBIN 12.5 g/dl (13.5-17.5); LYMPH % 20.2 % (24.0-44.0); MEAN CORPUSCULAR VOLUME 90.7 fl (80.0-96.0); MONO # 0.9 10^3/uL (0.0-0.8); MONO % 8.5 % (2.0-8.0); NEUTROPHILS # 6.8 10^3/uL (1.5-8.5); NEUTROPHILS % 67.7 % (36.0-66.0); PLATELET COUNT, AUTOMATED 332 10^3/uL (150-450); RED BLOOD COUNT 4.31 10^6/uL (4.30-6.10); WHITE BLOOD COUNT 10.1 10^3/uL (4.0-10.0)
[2022-05-25 19:18] LABS: ALBUMIN 3.4 GM/DL (3.2-5.2); ALT/SGPT 36 U/L (12-78); BILIRUBIN,DIRECT 0.1 MG/DL (0.0-0.2); BILIRUBIN,TOTAL 0.4 MG/DL (0.2-1.0); BLOOD UREA NITROGEN 16 MG/DL (7-18); CARBON DIOXIDE LEVEL 30 MEQ/L (21-32); CHLORIDE LEVEL 103 MEQ/L (98-107); CREATININE FOR GFR 1.01 MG/DL (0.70-1.30); GLOMERULAR FILTRATION RATE > 60.0 (>49); GLUCOSE, FASTING 91 MG/DL (70-100); POTASSIUM SERUM 4.1 MEQ/L (3.5-5.1); SODIUM LEVEL 137 MEQ/L (136-145); TOTAL PROTEIN 6.7 GM/DL (6.4-8.2)
[2022-05-25] MEDS ORDERED: MECLIZINE 25 MG TABLET PO ONE (20:00)
[2022-05-25] MEDS ORDERED: MECL1TAB31 PO (20:43)
[2022-05-25] MEDS ORDERED: OXYM15SP2 (20:43)
[2022-05-25] MEDS ORDERED: FLON1SPR NARES (20:43)
[2022-05-25] MEDS ORDERED: Vestibular PT (20:44)
[2022-05-25 20:50] VITALS: BP 153/73
== END 2022-05-25 20:55 | disposition home or self-care (01) ==
LOC: M ED 17:14
DX: R42 Dizziness and giddiness (principal); I10 Essential (primary) hypertension; E78.5 Hyperlipidemia, unspecified; F41.9 Anxiety disorder, unspecified; F32.9 Major depressive disorder, single episode, unspecified; Z98.84 Bariatric surgery status; Z79.82 Long term (current) use of aspirin; Z79.899 Other long term (current) drug therapy

== ENCOUNTER 2022-06-14 13:49 | Outpatient (RCR) | payer MEDICARE ==
[~2022-06-14 13:49] MED LIST changes: +FLON1SPR NARES; +MECL1TAB31 PO; +OXYM15SP2; +Vestibular PT
== END 2022-06-15 23:59 | disposition home or self-care (01) ==
LOC: M PT 13:49
PROVIDERS: ATTEND Emergency Medicine
DX: R42 Dizziness and giddiness (principal)

== ENCOUNTER 2022-06-16 12:58 | Outpatient (RCR) | payer MEDICARE | END 2022-07-16 | LOC: M PT 12:58 | PROVIDERS: ATTEND Emergency Medicine | DX: R42 Dizziness and giddiness (principal) ==

== ENCOUNTER → 2022-08-11 | Outpatient (REF) | payer MEDICARE, OTHER ==
[2022-08-11 16:37] LABS: HEPATITIS C VIRUS ABY INDEX 1.2 INDEX (<0.8)
[2022-08-13 20:51] LABS: FREE KAPPA LIGHT CHAINS SERUM 21.5 mg/L (3.3-19.4); FREE LAMBDA LIGHT CHAINS SERUM 22.1 mg/L (5.7-26.3); KAPPA/LAMBDA RATIO SERUM 0.97 (0.26-1.65)
[2022-08-15 19:07] LABS: ALBUMIN 3.9 g/dL (2.9-4.4); ALPHA-1-GLOBULINS 0.3 g/dL (0.0-0.4); ALPHA-2-GLOBULINS 0.9 g/dL (0.4-1.0); BETA-1-GLOBULINS 1.1 g/dL (0.7-1.3); TOTAL PROTEIN ELECTROPHORESIS 7.1 g/dL (6.0-8.5)
== END ==
LOC: M LAB REF 12:15
PROVIDERS: ATTEND Internal Medicine
DX: G60.9 Hereditary and idiopathic neuropathy, unspecified (principal)

== ENCOUNTER → 2022-09-12 | Outpatient (REF) | payer OTHER | LOC: M LAB REF 16:30 | PROVIDERS: ATTEND Internal Medicine | DX: B19.20 Unspecified viral hepatitis C without hepatic coma (principal) ==

== ENCOUNTER → 2023-05-19 | Outpatient (CLI) | payer OTHER ==
[~2023-05-19] MED LIST changes: +CYAN-1 PO; -CYAN100050 PO; +MECL-209 PO; -MECL1TAB31 PO; +PROHANCE 279.3MG/ML 15ML VIAL ONE; +PROHANCE 279.3MG/ML 5ML VIAL ONE
== END ==
LOC: M PLAIMG 09:56
PROVIDERS: ATTEND Internal Medicine
DX: R51.9 Headache, unspecified (principal); R42 Dizziness and giddiness
CPT/HCPCS: 70549; 70553; A9576

== ENCOUNTER → 2023-06-07 | Outpatient (CLI) | payer OTHER ==
[~2023-06-07] MED LIST changes: -PROHANCE 279.3MG/ML 15ML VIAL ONE; -PROHANCE 279.3MG/ML 5ML VIAL ONE
[2023-06-07 15:44] LABS: BASO # 0.1 10^3/uL (0.0-0.2); BASO % 0.7 % (0.0-1.0); EOS # 0.2 10^3/uL (0.0-0.5); EOS % 2.3 % (0.0-3.0); HEMOGLOBIN 13.2 g/dl (13.5-17.5); LYMPH # 2.4 10^3/uL (1.5-5.0); LYMPH % 33.2 % (24.0-44.0); MEAN CORPUSCULAR HEMOGLOBIN 30.1 pg (27.0-33.0); MEAN CORPUSCULAR VOLUME 91.3 fl (80.0-96.0); MONO # 0.4 10^3/uL (0.0-0.8); MONO % 5.6 % (2.0-8.0); NEUTROPHILS # 4.1 10^3/uL (1.5-8.5); NEUTROPHILS % 57.9 % (36.0-66.0); PLATELET COUNT, AUTOMATED 321 10^3/uL (150-450); RED BLOOD COUNT 4.38 10^6/uL (4.30-6.10); WHITE BLOOD COUNT 7.1 10^3/uL (4.0-10.0)
[2023-06-07 15:56] LABS: HEMOGLOBIN A1c 4.9 % (4.0-6.0)
[2023-06-07 16:07] LABS: ALBUMIN 3.6 G/DL (3.2-5.2); ALKALINE PHOSPHATASE 75 U/L (46-116); ALT/SGPT 32 U/L (7.0-40); AST/SGOT 24 U/L (<34); BILIRUBIN,TOTAL 0.5 MG/DL (0.3-1.2); BLOOD UREA NITROGEN 21 MG/DL (9-23); CARBON DIOXIDE LEVEL 30 MMOL/L (20-31); CHLORIDE LEVEL 106 MMOL/L (98-107); CREATININE FOR GFR 0.88 MG/DL (0.70-1.30); GLOMERULAR FILTRATION RATE > 60.0 (>49); GLUCOSE, FASTING 137 MG/DL (74-106); POTASSIUM SERUM 4.1 MMOL/L (3.5-5.1); SODIUM LEVEL 140 MMOL/L (136-145); TOTAL PROTEIN 6.6 G/DL (5.7-8.2)
[2023-06-07 16:10] LABS: RHEUMATOID FACTOR QUANT < 3.5 IU/ML (<14); THYROXINE (T4) 8.6 UG/DL (4.5-10.9); VITAMIN B12 LEVEL 466 PG/ML (211-911)
[2023-06-07 16:11] LABS: ERYTHROCYTE SEDIMENTATION RATE 26 mm/hr (0-20); THYROID STIMULATING HORMONE 0.488 uIU/ML (0.55-4.78)
[2023-06-07 16:12] LABS: FOLATE > 24.0 NG/ML (>5.4)
[2023-06-07 16:14] LABS: FREE THYROXINE INDEX 2.7 % (1.4-3.8); T UPTAKE 31.6 % (22.5-37.0)
== END ==
LOC: M PLALAB 14:45
PROVIDERS: ATTEND Psychiatry & Neurology Neurology
DX: R20.2 Paresthesia of skin (principal); E07.9 Disorder of thyroid, unspecified; E11.9 Type 2 diabetes mellitus without complications; G62.9 Polyneuropathy, unspecified

== ENCOUNTER → 2024-01-29 | Outpatient (REF) | payer OTHER ==
[~2024-01-29] MED LIST changes: +FLUO-365 PO; -FLUO20CA22 PO
== END ==
LOC: M LAB REF 16:28
PROVIDERS: ATTEND Nurse Practitioner Family
DX: R30.0 Dysuria (principal)

== ENCOUNTER 2024-02-26 05:27 | Emergency (ER) | payer OTHER ==
[~2024-02-26] VITALS: Ht 172.7 cm; Wt 106.8 kg
[2024-02-26] MEDS: ACETAMINOPHEN TAB 650MG DOSE (2X325MG) PO ONE (07:48)
[2024-02-26] MEDS: KETOROLAC 60MG 2ML VIAL IM ONE (07:49)
[2024-02-26] MEDS ORDERED: HYDR-3713 PO (09:03)
[2024-02-26 09:15] VITALS: BP 140/63; TEMP 96.5; O2SAT 96
== END 2024-02-26 09:17 | disposition home or self-care (01) ==
LOC: M ED 05:27
DX: S39.012A Strain of muscle, fascia and tendon of lower back, initial encounter (principal); M51.37 Other intervertebral disc degeneration, lumbosacral region; M54.42 Lumbago with sciatica, left side; X50.3XXA Overexertion from repetitive movements, initial encounter; Y92.007 Garden or yard of unspecified non-institutional (private) residence as the place of occurrence of the external cause; Y93.H2 Activity, gardening and landscaping; Y99.9 Unspecified external cause status; K21.9 Gastro-esophageal reflux disease without esophagitis; F41.9 Anxiety disorder, unspecified; Z98.84 Bariatric surgery status; Z79.82 Long term (current) use of aspirin; Z79.899 Other long term (current) drug therapy
CPT/HCPCS: 72110; 96372; 99283; J1885

== ENCOUNTER → 2024-06-04 | Outpatient (REF) | payer OTHER ==
[~2024-06-04] MED LIST changes: +GABA-1172 PO; +GABA-1490 PO; -GABA-282 PO; -GABA600T4 PO; +HYDR-3713 PO
[2024-06-04 19:07] LABS: PERCENT SATURATION 47.6 % (19.7-50.0)
[2024-06-04 19:10] LABS: FERRITIN 64.8 NG/ML (10.5-307.3)
== END ==
LOC: M LAB REF 17:40
PROVIDERS: ATTEND Internal Medicine
DX: D64.9 Anemia, unspecified (principal)

== ENCOUNTER → 2024-09-12 | Outpatient (CLI) | payer MEDICARE ==
[~2024-09-12] MED LIST changes: -ADV250INH INH; +ADVA1AER9 INH
== END ==
LOC: M RAD 09:26
PROVIDERS: ATTEND Internal Medicine
DX: E04.2 Nontoxic multinodular goiter (principal); Z87.891 Personal history of nicotine dependence

== ENCOUNTER → 2024-10-28 | Outpatient (REF) | payer MEDICARE ==
[2024-10-28 17:54] LABS: IRON (FE) 97 UG/DL (65-175); PERCENT SATURATION 27.8 % (19.7-50.0); PHOSPHORUS LEVEL 2.7 MG/DL (2.4-5.1); TOTAL IRON BINDING CAPACITY 349 UG/DL (250-425)
[2024-10-28 17:55] LABS: TOTAL 25(OH) VITAMIN D 42.5 NG/ML (20.0-100.0)
[2024-10-28 17:56] LABS: FOLATE 17.5 NG/ML (>5.4)
[2024-10-28 17:57] LABS: FERRITIN 47.1 NG/ML (10.5-307.3)
[2024-10-28 18:02] LABS: VITAMIN B12 LEVEL > 2000 PG/ML (211-911)
== END ==
LOC: M LAB REF 13:58
PROVIDERS: ATTEND Internal Medicine
DX: Z98.84 Bariatric surgery status (principal); Z79.899 Other long term (current) drug therapy

== ENCOUNTER → 2025-04-03 | Outpatient (CLI) | payer MEDICARE | LOC: M WUC 13:23 | PROVIDERS: ATTEND Nurse Practitioner Adult Health | DX: M79.601 Pain in right arm (principal) ==